=== PATIENT | male | born 1955 | race Caucasian/White ===

== ENCOUNTER 2017-08-31 14:55 | Outpatient (CLI) | payer MEDICARE, MEDICAID ==
--- NOTE | 2017-08-31 15:48 | Diagnostic Imaging Report ---
Indication: COUGH Technique: 2 views of the chest Comparison: 11/13/2015. Findings: Lungs and pleural spaces are clear. Heart size is normal. Bones are unremarkable. No significant interim change. Impression: No acute process
== END 2017-08-31 16:55 | disposition home or self-care (01) ==
LOC: RAD 14:55
DX: R05 Cough (principal)
CPT/HCPCS: 71020

== ENCOUNTER 2018-04-19 10:05 | Outpatient (CLI) | payer MEDICARE, MEDICAID ==
[2018-04-19 10:44] LABS: BASOPHILS % (AUTO) 1.1 % (0.0-2.0); EOSINOPHILS % (AUTO) 1.1 % (0.0-3.0); HEMATOCRIT 43.3 % (42.0-52.0); HEMOGLOBIN 14.6 G/DL (14.2-18.0); LYMPHOCYTES % (AUTO) 33.4 % (20.0-45.0); MEAN CORPUSCULAR VOLUME 100 FL (80-99); NEUTROPHILS % (AUTO) 57.4 % (45.0-75.0); PLATELET COUNT 188 K/UL (150-450); RED BLOOD COUNT 4.33 M/UL (4.70-6.10); RED CELL DISTRIBUTION WIDTH 12.1 % (11.6-14.8); WHITE BLOOD COUNT 8.1 K/UL (4.8-10.8)
[2018-04-19 11:09] LABS: ANION GAP 7 mmol/L (5-15); BLOOD UREA NITROGEN 12 mg/dL (7-18); CALCIUM 8.9 MG/DL (8.5-10.1); CARBON DIOXIDE 31 MMOL/L (21-32); CHLORIDE 104 MMOL/L (98-107); CREATININE 1.4 MG/DL (0.55-1.30); POTASSIUM 4.4 MMOL/L (3.5-5.1); SODIUM 142 MMOL/L (136-145)
[2018-04-19 11:19] LABS: ALANINE AMINOTRANSFERASE 25 U/L (12-78); ALBUMIN 4.2 G/DL (3.4-5.0); ALKALINE PHOSPHATASE 50 U/L (46-116); AMYLASE 46 U/L (25-115); ASPARTATE AMINO TRANSFERASE 17 U/L (15-37); BILIRUBIN,TOTAL 1.9 MG/DL (0.2-1.0)
[2018-04-19 11:20] LABS: BILIRUBIN,DIRECT 0.3 MG/DL (0.0-0.3)
--- NOTE | 2018-04-19 13:03 | Diagnostic Imaging Report ---
Indication: Abdominal pain Technique: CT of the abdomen and pelvis utilizing automated exposure control with intravenous contrast. Venous scanning performed. Axial, sagittal and coronal reformats presented. CT dose: Total DLP 832.3 mGycm; CTDI vol 15.23 mGy Comparison: None Findings: Mild dependent atelectatic changes noted in the lung bases. Heart size within normal limits. No pericardial effusion. There is a tiny hiatal hernia. Liver is normal in size and contour. Gallbladder is unremarkable. There is a 9 mm low-attenuation well-circumscribed structure in the left hepatic lobe which is too small to fully characterize but may represent a simple hepatic cyst. No biliary ductal dilatation. Hepatic veins and portal veins appear patent. Spleen, adrenal glands and pancreas unremarkable in appearance. Probable subcentimeter cysts in the upper pole the left kidney. Kidneys otherwise enhance symmetrically. No urinary tract stone or hydronephrosis bilaterally. The bladder is grossly unremarkable in appearance. Prostate may be mildly enlarged. There is colonic diverticulosis. There is thickening of portions of the sigmoid colon with mild surrounding inflammatory change compatible with a mild diverticulitis (series 5 image #[id number]). There is no evidence of associated bowel obstruction. No evidence of perforation or free intraperitoneal air. No free intraperitoneal fluid or intraperitoneal abscess. Patient appears to be status post appendectomy. Abdominal aorta is normal in caliber. No pathologically enlarged lymphadenopathy. The right total hip arthroplasty is noted. No acute osseous abnormality is seen. IMPRESSION: Findings compatible with a mild sigmoid diverticulitis. No evidence of associated bowel obstruction, perforation or abscess formation. Findings discussed with ordering physician Dr. Trevino via telephone conversation approximately 12:57 PM on 04/19/2018. Incidental findings as above. The CT scanner at [facility] is accredited by the [employer] and the scans are performed using protocols designed to limit radiation exposure to as low as reasonably achievable to attain images of sufficient resolution adequate for diagnostic evaluation.
== END 2018-04-19 12:05 | disposition home or self-care (01) ==
LOC: CAT 10:05
DX: R10.9 Unspecified abdominal pain (principal); K57.92 Diverticulitis of intestine, part unspecified, without perforation or abscess without bleeding; Z90.89 Acquired absence of other organs
CPT/HCPCS: 36415; 74177; 80053; 82150; 82248; 83690; 85025; Q9967

== ENCOUNTER 2018-06-30 12:45 | Outpatient (CLI) | payer MEDICARE, MEDICAID ==
--- NOTE | 2018-06-30 13:23 | Diagnostic Imaging Report ---
Indication: Chest pain Comparison: 08/31/2017 2 views of the chest obtained. Prominent reticular densities are demonstrated within the lungs. The lungs are hyperexpanded. Heart size is normal. Bones are osteopenic. IMPRESSION: No change. Chronic disease including COPD
== END 2018-06-30 14:45 | disposition home or self-care (01) ==
LOC: RAD 12:45
DX: R06.02 Shortness of breath (principal); R07.9 Chest pain, unspecified; M85.80 Other specified disorders of bone density and structure, unspecified site; J44.9 Chronic obstructive pulmonary disease, unspecified
CPT/HCPCS: 71046

== ENCOUNTER 2018-07-09 11:00 | Outpatient (CLI) | payer MEDICARE, MEDICAID ==
--- NOTE | 2018-07-13 09:45 | Diagnostic Imaging Report ---
APPROVED REPORT CPT Code: 41793 Present Symptoms Lower Extremity Pain: Left Comments: Hx of DVT LEFT LEG: Venous imaging reveals a patent deep venous system. There is no evidence of thrombus within the femoral, popliteal or tibial segments. Doppler indicates normal spontaneous flow within these segments. VENOUS INSUFFIECIENCY: Imaging also reveals venous insufficiency in the greater saphenous vein at the proximal thigh and popliteal vein level. Reflux lasting longer than 0.5 seconds.
== END 2018-07-09 13:00 | disposition home or self-care (01) ==
LOC: VAS 11:00
DX: Z86.718 Personal history of other venous thrombosis and embolism (principal); I87.2 Venous insufficiency (chronic) (peripheral)
CPT/HCPCS: 93971